=== PATIENT | female | born 1990 | race Caucasian/White ===

== ENCOUNTER 2017-06-21 23:37 | Emergency (ER) | payer SELFPAY ==
[~2017-06-21] VITALS: Ht 157.5 cm; Wt 60.6 kg
[2017-06-21 23:41] VITALS: BP 129/86; PULSE 117; RESP 18; TEMP 98.5; O2SAT 100
[2017-06-22] MEDS ORDERED: HYDR2.5%T RECTAL (00:19)
--- NOTE | 2017-06-22 00:23 | PD ---
HPI Chief Complaint: GI Complaint Time Seen by Provider: 00:02 Travel History International Travel<30 days: No Contact w/Intl Traveler<30days: No Traveled to known affect area: No History of Present Illness HPI The patient is a 27-year-old female that has had minimal hemorrhoidal bleeding and hemorrhoidal pain for week. She states she was constipated and this may be why she has hemorrhoids. She states she has never had hemorrhoids before. PFSH Past Medical History Asthma: No Blood Disorders: No Bipolar Disorder: Yes Anxiety: Yes Depression: Yes Heart Rhythm Problems: No Cancer: No Cardiovascular Problems: No High Cholesterol: No Chemotherapy: No Chest Pain: No Congestive Heart Failure: No COPD: No Diabetes: No Diminished Hearing: No Endocrine: No Gastrointestinal Disorders: No Genitourinary: Yes Headaches: Yes Hypertension: No Immune Disorder: No Implanted Vascular Access Dvce: No Kidney Stones: Yes (PASSED NATURALLY) Musculoskeletal: No Neurologic: Yes Psychiatric: Yes (DEPRESSION) Reproductive: No Respiratory: No Immunizations Current: No Migraines: Yes Radiation Therapy: No Seizures: Yes Sleep Apnea: No Thyroid Disease: No Tetanus Vaccination: > 5 Years Influenza Vaccination: No ?: Unknown LMP: 05/27/17 Menopausal: No : 1 Para: 2 Past Surgical History Abdominal Surgery: Yes () Section: Yes (Sep 2011) Oral Surgery: Yes (T&A) Tonsillectomy: Yes (T&A) Other Surgery: Yes (WISDOM TEETH REMOVED) Social History Alcohol Use: No Tobacco Use: Yes (1 PK) Substance Use: Yes (UNK) Allergies-Medications (Allergen,Severity, Reaction): Coded Allergies: Sulfa (Sulfonamide Antibiotics) (Unverified Allergy, Mild, RASH, 06/21/17) Reported Meds & Prescriptions Reported Meds & Active Scripts Active No Active Prescriptions or Reported Medications Review of Systems Except as stated in HPI: all other systems reviewed are Neg Physical Exam Narrative GENERAL: Well-nourished, well-developed patient in minimal apparent distress with her hemorrhoidal discomfort. Her vital signs show heart rate of 117 with blood pressure 129/86. SKIN: Focused skin assessment warm/dry. HEAD: Normocephalic. EYES: No scleral icterus. No injection or drainage. NECK: Supple, trachea midline. No JVD or lymphadenopathy. CARDIOVASCULAR: Regular rate and rhythm without murmurs, gallops, or rubs. RESPIRATORY: Breath sounds equal bilaterally. No accessory muscle use. GASTROINTESTINAL: Abdomen soft, non-tender, nondistended. MUSCULOSKELETAL: No cyanosis, or edema. BACK: Nontender without obvious deformity. No CVA tenderness. Rectal: There is a tiny hemorrhoid on the left which is not bleeding and not thrombosed. It shows definite irritation. No fissure is noted. No abscess is noted. Data Data Last Documented VS Vital Signs Date Time Temp Pulse Resp B/P (MAP) Pulse Ox O2 Delivery O2 Flow Rate FiO2 06/21/17 23:41 98.5 117 18 129/86 (100) 100 MDM Medical Decision Making Medical Screen Exam Complete: Yes Emergency Medical Condition: Yes Medical Record Reviewed: Yes Differential Diagnosis Thrombosed hemorrhoids, bleeding hemorrhoid, rectal fissure, perirectal abscess Narrative Course The patient has an irritated hemorrhoid on the left. She will need to sit in a tub of warm water and clean the hemorrhoid gently, put ice on the hemorrhoid to cool it down and is given Anusol rectal suppositories/cream. Diagnosis Primary Impression: Hemorrhoid Additional Instructions: As we discussed, sit in a tub of warm water to clean the hemorrhoid. Use ice to calm down the hemorrhoid. Apply 4 times a day and a hemorrhoidal ointment. If you have problems follow-up with colorectal surgery. Med/Other Pt SpecificInfo: Prescription(s) given Scripts Hydrocortisone Rectal (Anusol-Hc Rectal) 2.5% Cream 1 APPLIC RECTAL QID for Itching/Inflammation, #30 GM 0 Refills Prov: Reed Rogers MD 06/22/17 Disposition: DISCHARGE HOME Condition: Stable Reed Rogers MD Jun 22, 2017 00:23
[2017-06-22 00:36] VITALS: BP 120/85
== END 2017-06-22 00:38 | disposition home or self-care (01) ==
LOC: PHED 23:37
DX: K64.9 Unspecified hemorrhoids (principal); F17.200 Nicotine dependence, unspecified, uncomplicated
CPT/HCPCS: 99282